=== PATIENT | female | born 1985 | race Caucasian/White ===

== ENCOUNTER 2018-05-20 03:15 | Inpatient (IN) | payer MEDICAID ==
[2018-05-20] MEDS: LACTATED RINGER'S 1,000 ML IV* ×3 (03:40→20:00)
[2018-05-20] MEDS ORDERED: BUTORPHANOL 2 MG INJ IV (04:00)
[2018-05-20] MEDS ORDERED: IBUPROFEN 600 MG TAB PO (04:00)
[2018-05-20] MEDS ORDERED: MISOPROSTOL 200 MCG TAB PR ×2 (04:00→15:30)
[2018-05-20] MEDS ORDERED: METHYLERGONOVINE 0.2 MG INJ IM ×2 (04:00→15:30)
[2018-05-20] MEDS ORDERED: OXYTOCIN 30 UNITS/LR 500 ML IV ×2 (04:00→15:30)
[2018-05-20] MEDS ORDERED: CARBOPROST 250 MCG INJ IM ×2 (04:00→15:30)
[2018-05-20] MEDS ORDERED: LIDOCAINE 1% (MPF) 30 ML INJ INJ (04:00)
[2018-05-20 04:08] LABS: ADD MAN DIFF? NO
[2018-05-20 04:13] LABS: WHITE BLOOD COUNT 13.6 10^3/ul (4.8-10.8)
[2018-05-20 04:13] LABS: BASOPHIL # 0.1 10^3/ul (0.0-0.1); BASOPHILS % 0.4 % (0.0-2.0); EOSINOPHILS # 0.1 10^3/ul (0.0-0.5); EOSINOPHILS % 0.5 % (0.0-7.0); HEMATOCRIT 37.1 % (37.0-47.0); HEMOGLOBIN 12.8 g/dl (12.0-16.0); IMMATURE GRANS #M 0.08 10^3/ul; IMMATURE GRANS % (M) 0.6 %; LYMPHOCYTES # 2.4 10^3/ul (0.8-2.9); LYMPHOCYTES % 17.4 % (15.0-51.0); MEAN CORPUSCULAR HEMOGLOBIN 30.8 pg (29.0-33.0); MEAN CORPUSCULAR HGB CONC 34.5 g/dl (32.0-37.0); MEAN CORPUSCULAR VOLUME 89.4 fl (82.0-101.0); MEAN PLATELET VOLUME 11.7 fl (7.4-10.4); MONOCYTE # 0.9 10^3/ul (0.3-0.9); MONOCYTES % 6.9 % (0.0-11.0); NEUTROPHIL # 10.1 10^3/ul (1.6-7.5); NEUTROPHILS % 74.2 % (39.0-77.0); PLATELET COUNT 159 10^3/UL (140-415); RED BLOOD COUNT 4.15 10^6/ul (4.20-5.40); RED CELL DISTRIBUTION WIDTH 13.4 % (11.5-14.5)
[2018-05-20 04:33] LABS: PROTIME 13.3 Sec (11.9-14.9)
[2018-05-20 04:34] LABS: PARTIAL THROMBOPLASTIN TIME 26.5 Sec (25.0-35.0)
[2018-05-20] MEDS ORDERED: FENTAnyl 2MCG/ML-ROPIV 0.2% 100 ML (05:31)
[2018-05-20] MEDS ORDERED: NALOXONE (0.4 MG/ML) INJ IV (06:00)
[2018-05-20] MEDS ORDERED: FENTAnyl 2MCG/ML-ROPIV 0.2% 100 ML BAG EPI (06:00)
[2018-05-20] MEDS: AMPICILLIN 2 GM/NS (PMX) 100 ML IVPB (06:19)
[2018-05-20 07:43] LABS: HEPATITIS B SURFACE ANTIBODY NEGATIVE (NEGATIVE)
[2018-05-20] MEDS ORDERED: AMPICILLIN 1 GM/NS (PMX) 50 ML IVPB ×2 (09:00→10:00)
[2018-05-20] MEDS: OXYTOCIN 30 UNITS/LR 500 ML IV ×2 (10:39→11:09)
[2018-05-20] MEDS ORDERED: ZOLPIDEM 5 MG TAB PO (15:30)
[2018-05-20] MEDS ORDERED: OXYCODONE/ASPIRIN (4.88/325) TAB PO (15:30)
[2018-05-20] MEDS: WITCH HAZEL/GLYCERIN PAD PR (17:51)
[2018-05-20] MEDS: IBUPROFEN 600 MG TAB PO (17:51)
[2018-05-20] MEDS: LANOLIN 7 GM TUBE TOP (17:51)
[2018-05-20] MEDS: BENZOCAINE 20% 56 ML SPRAY TOP (17:51)
[2018-05-20] MEDS: OXYCODONE/ASPIRIN (4.88/325) TAB PO (20:04)
[2018-05-20] MEDS: SENNA/DOCUSATE NA (8.6MG/50MG) TAB PO (20:04)
[2018-05-20 21:44] LABS: RAPID PLASMA REAGIN NONREACTIVE (NR)
[2018-05-21] MEDS: IBUPROFEN 600 MG TAB PO ×5 (00:49→23:03)
[2018-05-21] MEDS: LACTATED RINGER'S 1,000 ML IV* (04:00)
[2018-05-21 09:25] LABS: ADD MAN DIFF? NO
[2018-05-21] MEDS: SENNA/DOCUSATE NA (8.6MG/50MG) TAB PO ×2 (09:26→21:32)
[2018-05-21 09:38] LABS: BASOPHILS % 0.3 % (0.0-2.0); EOSINOPHILS # 0.1 10^3/ul (0.0-0.5); EOSINOPHILS % 1.2 % (0.0-7.0); HEMATOCRIT 33.2 % (37.0-47.0); HEMOGLOBIN 11.1 g/dl (12.0-16.0); IMMATURE GRANS #M 0.07 10^3/ul; IMMATURE GRANS % (M) 0.6 %; LYMPHOCYTES # 3.1 10^3/ul (0.8-2.9); LYMPHOCYTES % 25.5 % (15.0-51.0); MEAN CORPUSCULAR HEMOGLOBIN 31.3 pg (29.0-33.0); MEAN CORPUSCULAR HGB CONC 33.4 g/dl (32.0-37.0); MEAN CORPUSCULAR VOLUME 93.5 fl (82.0-101.0); MEAN PLATELET VOLUME 11.8 fl (7.4-10.4); MONOCYTE # 0.8 10^3/ul (0.3-0.9); MONOCYTES % 6.6 % (0.0-11.0); NEUTROPHIL # 7.9 10^3/ul (1.6-7.5); NEUTROPHILS % 65.8 % (39.0-77.0); PLATELET COUNT 142 10^3/UL (140-415); RED BLOOD COUNT 3.55 10^6/ul (4.20-5.40); RED CELL DISTRIBUTION WIDTH 13.8 % (11.5-14.5)
[2018-05-21 09:38] LABS: WHITE BLOOD COUNT 12.1 10^3/ul (4.8-10.8)
[2018-05-21 17:21] LABS: HEPATITIS B SURFACE ANTIGEN NEGATIVE (NEGATIVE)
[2018-05-22] MEDS: IBUPROFEN 600 MG TAB PO ×2 (05:05→11:27)
[2018-05-22] MEDS: SENNA/DOCUSATE NA (8.6MG/50MG) TAB PO (09:34)
[2018-05-22] MEDS: DIPHTH/TET/ACEL PERTUSS (ADULT) 0.5 ML VIAL IM* (11:26)
== END 2018-05-22 15:05 | disposition home or self-care (01) | DRG 775 ==
LOC: OBT 03:15 → L-D 03:16 → OBT 04:07 → L-D 04:08 → PP1 15:12
PROVIDERS: Obstetrics & Gynecology
PROC: 10E0XZZ Delivery of Products of Conception, External Approach (ICD-10-PCS; principal; 2018-05-20)
PROC: 0HQ9XZZ Repair Perineum Skin, External Approach (ICD-10-PCS; 2018-05-20)
DX: O40.3XX0 Polyhydramnios, third trimester, not applicable or unspecified (principal); O77.0 Labor and delivery complicated by meconium in amniotic fluid; Z3A.40 40 weeks gestation of pregnancy; Z37.0 Single live birth; O70.9 Perineal laceration during delivery, unspecified
CPT/HCPCS: 36415; 62319; 76815; 85025; 85610; 85730; 86592; 86706; 86850; 86900; 86901; 87340; 90715; 99464